=== PATIENT | female | born 1980 | race Caucasian/White ===

== ENCOUNTER 2018-07-13 12:56 | Outpatient (CLI) | payer BC ==
--- NOTE | 2018-07-13 14:36 | ULT ---
ULTRASOUND PELVIC ULTRASOUND TRANSVAGINAL DOPPLER DUPLEX: 07/13/2018 HISTORY: Menorrhagia with regular cycles, in a 38-year-old female. TECHNIQUE: Transabdominal transducer used to evaluate intrapelvic contents using the urinary bladder as an acous tic window. Endovaginal transducer used to visualize intrapelvic contents in greater detail. Color fl ow Doppler and Pulsed Doppler spectral waveform analysis of ovaries. FINDINGS: Uterus: 9.5 x 4 x 5 cm. Endometrial stripe: 0.4 cm (4 mm). IUD in place. Right ovary: 3 x 3 x 2.5 cm. Left ovary: 3 x 2.5 x 2.5 cm. Uterine leiomyoma (fibroid): None. Blood flow in both ovaries: Demonstrated. Ovarian cyst (defined as 2 cm or greater): A 2.5 x 2 x 1.5 cm left ovarian cyst Free fluid in the cul-de-sac: None. IMPRESSION: 1. A 2.5 cm left ovarian cyst. 2. Intrauterine device. MERRITT Woods POS: ORACIO
== END 2018-07-13 12:57 | disposition home or self-care (01) ==
LOC: SCSULT 12:56
PROVIDERS: ATTEND Family Medicine
DX: N92.0 Excessive and frequent menstruation with regular cycle (principal); N83.202 Unspecified ovarian cyst, left side; Z97.5 Presence of (intrauterine) contraceptive device
CPT/HCPCS: 76856

== ENCOUNTER 2019-02-25 00:35 | Observation (INO) | payer BC ==
[2019-02-25] MEDS ORDERED: Acetaminophen 650 MG Suppository PR PRN (01:35)
[2019-02-25] MEDS ORDERED: Ondansetron ODT 4 MG TAB PO PRN (01:35)
[2019-02-25] MEDS ORDERED: Ondansetron PF 4 MG/2 ML Vial IVP PRN (01:35)
[2019-02-25] MEDS ORDERED: Acetaminophen 325 MG TAB PO PRN (01:35)
[2019-02-25] MEDS ORDERED: Morphine 2 MG/ML SYRINGE SLOW IVP PRN (02:13)
[2019-02-25 02:44] VITALS: BMI 26.3
--- NOTE | 2019-02-25 04:07 | HP ---
PRIMARY CARE DOCTOR: None reported. CODE STATUS: Full code. TIME OF EVALUATION: 1:30 a.m. CHIEF COMPLAINT: Abdominal pain. HISTORY OF PRESENT ILLNESS: This is a 38-year-old female patient with no significant past medical history except for premorbidly obese in her early 20s, she was about 280 pounds. She had significant weight loss and has come down to 170 over the course of the years. 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 Symptoms had been present over the past week and has been gradually getting worse to the point that today she was unable to move due to the abdominal pain. She presented to the outpatient ER. She got a CT abdomen that shows moderate ascites and possible end-stage cirrhosis and some left sided adnexal simple cyst that had been seen also in ultrasounds in July 2018. The patient has also complained of associated anorexia and some weight loss, but she was thinking that this had been related to several family problems that she had where she had been under stress and anxiety. The symptoms were severe. REVIEW OF SYSTEMS: CONSTITUTIONAL: The patient had no fever, chills. The patient has generalized weakness. The patient has anorexia and also weight loss. RESPIRATORY: No cough, sputum production, shortness of breath. CARDIOVASCULAR: No chest pain or palpitation. GASTROINTESTINAL: The patient has abdominal pain. No nausea, no vomiting, diarrhea. 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 GENITOURINARY: No burning on urination. EXTREMITIES: No leg swelling. All other systems were reviewed and negative except for the findings mentioned above. PAST MEDICAL HISTORY: Negative except for morbid obesity. FAMILY HISTORY: Negative. SOCIAL HISTORY: No alcohol, no drugs. No smoking history. PAST SURGICAL HISTORY: No significant or major surgeries. ALLERGIES: KEFLEX. REPORTED MEDICATIONS: 1. Lisinopril. 2. Wellbutrin. PHYSICAL EXAMINATION: VITAL SIGNS: On presentation, blood pressure 128/68 with heart rate of 90, temperature 99.5, respiratory rate of 16. GENERAL APPEARANCE: The patient is alert, oriented, in mild distress due to medical events. HEAD AND EYES: Normal conjunctiva. Moist oral mucosae. Anicteric. NECK: No JVD. RESPIRATORY: Bilateral air entry. No rales. No wheezes. Symmetric expansion. CARDIOVASCULAR: Normal rate. Regular rhythm. No murmurs. No gallop. No edema. ABDOMEN: Soft, normal bowel sounds. Pain improved after pain medication. MUSCULOSKELETAL: Baseline range of motion and strength. SKIN: Warm, intact. No pallor. No rash. No redness. Capillary refill seems to be intact. NEUROLOGIC: No evidence of any new focal weakness. Cranial nerves seems to be intact. PSYCHIATRIC: The patient was crying during my examination. She is concerned about current presentation of symptoms. CAT scan was done prior to transfer and it was reported having moderate ascites . Consider evaluation for hepatitis. Questionable proximal small-bowel mucosal thickening may represent enteritis, minimal hepatic encephalopathy may represent early cirrhosis. Multiple small simple ovarian cysts are likely physiologic. This may be better evaluated with ultrasound, if clinically indicated. LABORATORY DATA: Reviewed. The patient has sodium 139, potassium 3.6, chloride 102, glucose 100, creatinine 1.0, BUN 13, hemoglobin 17, anion gap 19. LFTs were negative. White count was 19. UA was negative. VBG showed pH 7.34. ASSESSMENT AND PLAN: The patient will be placed in the hospital with following medical problems: 1. Ascites, of unclear etiology. The patient will be placed in the hospital. We will do tap. The patient will need a tap for diagnosis. Most likely etiology would be this is secondary to liver cirrhosis. Hepatitis panels will be ordered, will be secondary to fatty liver disease due to morbid obesity in early ages of life. The patient also has left adnexal multiple simple cysts in the ovary, that could be another etiology, although these cysts were seen also in July 2018 ultrasound. We will await for results and treat accordingly. 2. Possible early stage of cirrhosis, likely secondary to morbid obesity, unless proven otherwise with the hepatitis panel, GI has been consulted for further recommendations. 3. Severe abdominal pain needing opioid medication for optimal control, continue to treat patient was pain free at the time of my examination. 4. Deep venous thrombosis prophylaxis. 5. Leukocytosis. No clear etiology at this point. Possibility for spontaneous bacterial peritonitis is still there, the patient will have tap for diagnosis and treatment. We will follow results and treat accordingly. We will not start antibiotics now. This patient is stable and would like to have a good sample of ascitic fluid for further diagnosis. Job ID: [id number]
[2019-02-25 05:43] LABS: #Eosinphils 0.1 thou/uL (0.0-0.7); #Lymphocytes 1.8 thou/uL (1.20-3.40); #Neutrophils 8.2 thou/uL (1.40-6.50); %Basophils 0.3 % (0.0-1.0); %Eosinophils 0.7 % (0.0-10.0); %Lymphocytes 16.4 % (21.0-51.0); %Monocytes 9.2 % (0.0-10.0); %Neutrophils 73.5 % (42.0-75.0); Hemoglobin 11.9 g/dL (12.0-16.0); Mean Corpuscular HGB CONC 32.3 g/dL (32.0-36.0); Mean Corpuscular Hemoglobin 31.3 pg (27.0-31.0); Mean Corpuscular Volume 96.9 fL (78.0-98.0); Mean Platelet Volume 7.1 fL (7.4-10.4); Platelet Count 347 thou/uL (130-400); White Blood Cell (WBC) Count 11.1 thou/uL (4.8-10.8)
[2019-02-25 06:00] LABS: Anion Gap 10 mmol/L (10-20); BUN (Urea Nitrogen) 11 mg/dL (7.0-18.7); Calc. Creatinine Clearance 89 mL/min (70-130); Calcium 8.6 mg/dL (7.8-10.44); Carbon Dioxide 25 mmol/L (22-29); Chloride 104 mmol/L (98-107); Estimated GFR-MDRD 61; Glucose 97 mg/dL (70-105); Potassium 3.7 mmol/L (3.5-5.1); Sodium 135 mmol/L (136-145)
--- NOTE | 2019-02-25 11:50 | CON ---
DATE OF CONSULTATION: 02/25/2019 REASON FOR CONSULTATION: Abdominal pain, abnormal CAT scan. HISTORY OF PRESENT ILLNESS: Ms. Soriano is a 38-year-old female, who yesterday went to [facility] for abdominal pain. She notes it started acutely on Monday, it was fairly uncomfortable in her upper to mid abdomen. She has been at the pool with her kids and thought maybe she had a stomach bug and stomach cramping pain almost like she was going to have diarrhea, but never did. On Monday, that pain was worse, it was to the point where it would hurt her to get up and move around or even just to roll over in bed, and therefore, she came to the emergency room. She had no fever or chills. She had no diarrhea, nausea, or vomiting. She notes that she in the past couple of weeks has had some vague lower abdominal discomfort and thought that was maybe related to premenstrual cramping. She had gone to her PCP in the past couple of weeks and that her well-woman exam, everything was normal there, and her PCP thought maybe she just had some constipation issues and she was started on more fluids and liquids. Prior to this, she has never had anything like this. In the emergency room, she had some ascites, proximal small-bowel mucosal thickening and a minimally nodular contour to the liver per the radiologist. There was no mention of adenopathy, and there distinctly noted no evidence of appendicitis or gynecologic abnormalities, except for a simple ovarian cyst. The patient has had no fever or chills, rashes, myalgias, or arthralgias. Her weight has been stable around 160, 170, although she was around 300 pounds at the of her last child in early 2016. She states that stressful situations, going through divorce, and change of job situation, she just started eating less. PAST MEDICAL HISTORY: Obesity in the past. No history of bariatric surgery. She had some hypertension for which she was started on lisinopril about 6 months ago. She has had pseudotumor cerebri, which improved with weight loss. She also stays off estrogen containing hormones for that. PAST SURGICAL HISTORY: Includes an IUD and 2 wisdom teeth surgery. FAMILY HISTORY: Negative for liver disease, inflammatory bowel disease, colon cancer. SOCIAL HISTORY: She drinks alcohol maybe 2 glasses of wine a week. Has never been a heavy drinker. She did binge drink when she was in college. No history of drugs. No history of smoking. ALLERGIES: KEFLEX. MEDICATIONS: Wellbutrin, lisinopril. REVIEW OF SYSTEMS: CONSTITUTIONAL: No recent weight loss. No headaches. No vision changes. No fever or chills. She has some loss of appetite, generalized weakness and fatigue with not eating from the last day. RESPIRATORY: Negative for cough, shortness of breath, or dyspnea on exertion. CARDIOVASCULAR: Negative for chest pain or palpitations. GI: Negative for dysphagia, odynophagia, melena, hematochezia, hematemesis, nausea, vomiting, or constipation. : Negative for dysuria, frequency, or urgency. Last menstrual cycle was about 2 weeks ago. PHYSICAL EXAMINATION: VITAL SIGNS: Temperature is 98.8. She has been afebrile since admission. Pulse is 68, blood pressure to 110/75. GENERAL: She looks well. She has 2 friends at the bedside. She is in no distress. HEENT: Oropharynx is slightly dry. NECK: Supple without adenopathy. LUNGS: Clear. HEART: Regular rate and rhythm. ABDOMEN: Soft. There is mild tenderness, but no rebound, no guarding. Bowel sounds are quiescent. There is no shifting dullness or fluid wave. There are no palpable masses. No umbilical lesions. There is no evidence of inguinal nodes or adenopathy. EXTREMITIES: Reveal no clubbing, cyanosis, or edema. LABORATORY DATA: White count 7.8 on 01/25, it is 11.1 today, hemoglobin is 11.9, platelet count is 374. Sodium 135, potassium 3.7, chloride 104, bicarb 25, anion gap 10, BUN and creatinine are 11 and 1.02, glucose 97. She had normal comprehensive metabolic profile and normal TSH on 01/25/2019. Albumin was 3.8 and total protein was 6 with AST and ALT 11 and 9 at that time. In the emergency room yesterday, at the outside facility, she had a white count of 19,000 with 16% granulocytes, platelets of 453. Urinalysis was normal. Amylase was 40. GGT was 10, total protein was 7.2, albumin was 3.9. AST and ALT were 21 and 12. Alkaline phosphatase was 77. Electrolytes were all normal. Urinalysis was normal. Venous blood gas was normal. IMAGING STUDIES: CT as per HPI and reports. ASSESSMENT: Abdominal pain, fairly acute with significant leukocytosis and thrombocytosis, likely reactive. On admission, she had a little bit of scant ascites, some edematous small bowel and questionable nodular liver. Her labs are not consistent with end-stage liver disease. She has no peripheral edema on exam. I do not think that the ascites is from cirrhosis. There is not much comment on the report about her vascularity. Some concerns would be that this was an enteritis with development of the ascites with it, some type of vascular access in the abdomen including mesenteric vein or portal vein thrombosis would be something to consider, but the nodular liver is concerning, but the labs show no signs of cirrhosis. She has minimal alcohol use. Her risk factor would be that she was very heavy at one point in time and lost a lot of weight. She could have some fatty liver, but again I would not think that would cause the type of pain she identified. There does not appear to be at least on physical exam any tappable ascites. PLAN: We will review her CAT scans. We will start her on a liquid diet. We will review the actual pictures with Radiology today and make further recommendations at that time. Job ID: [id number]
[2019-02-25 12:05] LABS: ALT (SGPT) Less than 7 U/L (8-55); AST (SGOT) 9 U/L (5-34); Albumin 3.3 g/dL (3.5-5.0); Alkaline Phosphatase 70 U/L (40-150); Bilirubin, Direct 0.3 mg/dL (0.1-0.3); Bilirubin, Total 0.5 mg/dL (0.2-1.2); Protein, Total 5.8 g/dL (6.0-8.3)
[2019-02-25 12:16] LABS: HBCM Index 0.23 S/CO (0-0.79); HBSAg Index 0.26 S/CO (0-0.99); Hep A IgM AB Non-Reactive (NonReactive); Hep B Surf Ag Non-Reactive S/CO (NonReactive); Hep C IgG Ab Non-Reactive (NonReactive); Hep C Index 0.07 S/CO (0-0.79); Hepatitis B Core IgM Abs Non-Reactive (NonReactive)
[2019-02-25] MEDS: Dextrose 5 % And 0.9 % NaCl 1,000 ML IV SCH (12:41)
--- NOTE | 2019-02-25 14:30 | PDOC.PN ---
- Subjective Encounter Start Date: 02/25/19 Encounter Start Time: 09:45 Subjective: pt up in bed complains of abdomen pain - Objective Resuscitation Status - Order Detail: 02/25/19 01:35 Resuscitation Status Routine Resuscitation Status: FULL: Full Resuscitation Vital Signs & Weight: Vital Signs (12 hours) Temp Pulse Resp BP BP Pulse Ox 02/25/19 10:41 98.7 F 77 18 109/73 99 02/25/19 07:26 98.5 F 68 18 95/59 L 94 L 02/25/19 04:00 97.9 F 76 20 96/61 99 Weight Weight 163 lb Result Diagrams: 02/25/19 05:01 02/25/19 05:01 Phys Exam - Physical Examination Respiratory: no wheezing, no rales, no rhonchi, wheezing present, clear to auscultation bilateral Gastrointestinal: soft, positive bowel sounds mild tenderness all over Dx/Plan (1) Abdominal pain Code(s): R10.9 - UNSPECIFIED ABDOMINAL PAIN Status: Acute (2) Cirrhosis Code(s): K74.60 - UNSPECIFIED CIRRHOSIS OF LIVER Status: Acute - Plan ct abd/pel indicated ascites, gi consulted, will check -: hepatitis panel. may need paracentesis. * . Review of Systems - Review of Systems Respiratory: negative: Cough, Dry, Shortness of Breath, Hemoptysis, SOB with Excertion, Pleuritic Pain, Sputum, Wheezing Cardiovascular: negative: chest pain, palpitations, orthopnea, paroxysmal nocturnal dyspnea, edema, light headedness, other Gastrointestinal: Abdominal Pain - Medications/Allergies Allergies/Adverse Reactions: Allergies Allergy/AdvReac Type Severity Reaction Status Date / Time cephalexin [From Keflex] Allergy Verified 02/25/19 03:21 Medications: Current Medications Acetaminophen (Tylenol) 650 mg PO Q4H PRN PRN Reason: Headache/Fever/Mild Pain (1-3) Acetaminophen (Tylenol) 650 mg TN Q4H PRN PRN Reason: Headache/Fever/Mild Pain (1-3) Dextrose/Sodium Chloride (D5 0.9% Ns) 1,000 mls @ 75 mls/hr IV .[id number] LIBERTAD Last Admin: 02/25/19 12:41 Dose: 1,000 mls Morphine Sulfate (Morphine) 2 mg SLOW IVP Q4H PRN PRN Reason: Severe Pain (7-10) Ondansetron HCl (Zofran Odt) 4 mg PO Q6H PRN PRN Reason: Nausea/Vomiting Ondansetron HCl (Zofran) 4 mg IVP Q6H PRN PRN Reason: Nausea/Vomiting
--- NOTE | 2019-02-25 15:19 | CON ---
DATE OF CONSULTATION: 02/25/2019 ADDENDUM: Ms. Soriano is feeling a little bit better. She did tolerate liquids. She is still sore when she gets up and walks around. I was able to take her CAT scan images from the outside facility and reviewed them with our radiologist here, they do not see any overt cirrhosis. The liver edge does appear smooth. There is some scattered ascites in the pelvis and abdomen of unclear etiology. There is no adenopathy. There are no abnormalities in the genitourinary system. The IUD is in place. Does not appear to be inflammation there, and there are some loops of small bowel that were somewhat thickened consistent with enteritis, but it is not in one focal area. There is no associated fat stranding or mesenteric adenopathy. ASSESSMENT: At this time, I think she may be had some transient ischemia, which would be atypical in the small bowel. She does not use drugs or vasoconstrictive medications. More likely, this was either a viral or angioedema related to her ETTA inhibitor. At this point, I am going to hold off on her ETTA inhibitor and advance her diet slowly. Recheck some labs tomorrow. If she worsens in anyway, we can consider Surgical consultation. Job ID: [id number]
[2019-02-26] MEDS: Dextrose 5 % And 0.9 % NaCl 1,000 ML IV SCH ×2 (00:55→13:54)
[2019-02-26 06:15] LABS: #Basophils 0.1 thou/uL (0.0-0.2); #Eosinphils 0.1 thou/uL (0.0-0.7); #Lymphocytes 1.8 thou/uL (1.20-3.40); #Monocytes 0.7 thou/uL (0.11-0.59); #Neutrophils 5.5 thou/uL (1.40-6.50); %Basophils 0.9 % (0.0-1.0); %Eosinophils 1.4 % (0.0-10.0); %Lymphocytes 21.7 % (21.0-51.0); %Monocytes 8.7 % (0.0-10.0); %Neutrophils 67.3 % (42.0-75.0); Hemoglobin 10.3 g/dL (12.0-16.0); Mean Corpuscular HGB CONC 32.4 g/dL (32.0-36.0); Mean Corpuscular Hemoglobin 31.6 pg (27.0-31.0); Mean Corpuscular Volume 97.5 fL (78.0-98.0); Mean Platelet Volume 7.4 fL (7.4-10.4); Platelet Count 309 thou/uL (130-400); RBC Distribution Width 10.9 % (11.5-14.5); Red Blood Cell (RBC) Count 3.26 mill/uL (4.20-5.40); White Blood Cell (WBC) Count 8.1 thou/uL (4.8-10.8)
[2019-02-26 06:50] LABS: ALT (SGPT) Less than 7 U/L (8-55); AST (SGOT) 7 U/L (5-34); Alkaline Phosphatase 63 U/L (40-150); Anion Gap 9 mmol/L (10-20); BUN (Urea Nitrogen) 5 mg/dL (7.0-18.7); Bilirubin, Total 0.2 mg/dL (0.2-1.2); Calc. Creatinine Clearance 108 mL/min (70-130); Calcium 8.5 mg/dL (7.8-10.44); Carbon Dioxide 26 mmol/L (22-29); Chloride 108 mmol/L (98-107); Estimated GFR-MDRD 77; Globulin 2.2 g/dL (2.4-3.5); Glucose 95 mg/dL (70-105); Lipase 16 U/L (8-78); Potassium 4.1 mmol/L (3.5-5.1); Protein, Total 5.2 g/dL (6.0-8.3); Sodium 139 mmol/L (136-145)
[2019-02-26 12:32] VITALS: BP 127/82; TEMP 98.8
--- NOTE | 2019-02-27 04:35 | DIS ---
DATE OF ADMISSION: 02/25/2019 DATE OF DISCHARGE: 02/26/2019 DISCHARGE DIAGNOSES: As of the following; 1. Abdominal pain. 2. Possible enteritis. 3. Possible cirrhosis. HOSPITAL COURSE: The patient is a 38-year-old female who initially presented to the hospital with complaints of generalized abdominal pain. The patient had a history of severe morbid obesity; however, she had lost significant amount of pain. The patient did get a CT of abdomen and pelvis, which indicated some possible moderate ascites and possible cirrhosis was also mentioned. At this time, she was seen by GI who wanted to review the scans with the radiologist in regard to possible ascites. However, upon reviewing the scan, the decision was made that the liver edges does appear smooth and did not indicate any overt cirrhosis. There was some scattered ascites in the pelvis and the abdomen of unclear etiology. There was no adenopathy. She did have some loops of her bowel that seemed to be thickened is consistent with enteritis. However, there was no local focal area. It was not associated with any kind of stranding or mesenteric adenopathy. At this time, a recommendation from GI was to discontinue her ETTA inhibitor in the thoughts that possibly this could be a transient ischemia which is also very atypical in the small bowel. The patient the following day had 2 bowel movements. Her abdominal pain improved and she was able to tolerate her meal and was discharged. Her hepatitis panel was negative and her CMP was negative. I did do an ISAAC which is pending to be resulted. I did tell the patient to follow up with GI in 1 to 2 months and also to follow up with her primary care doctor. HOME MEDICATIONS: Her home medications will be as of the following; 1. Wellbutrin daily. 2. I have discontinued her lisinopril. PHYSICAL EXAMINATION: VITAL SIGNS: 98.8, 84, 18, 99% on room air, 127/82. GENERAL: She is awake, alert, and oriented x3. Does not appear in distress. CV: S1 and S2 present. No murmurs, rubs, or gallops. ABDOMEN: Soft and nontender. Bowel sounds are present x2. EXTREMITIES: No edema. Pedal pulses are present x2. Again, she will be discharged home. She will follow up with her primary care doctor and also with GI as outpatient. Job ID: [id number]
[2019-02-27] MEDS ORDERED: Bupropion 150 MG XL TAB PO SCH (09:00)
[2019-02-27 16:57] LABS: ANA Symphony (Qualitative) Negative (Negative); ANA Symphony (Quantitative) 0.2 Ratio (< 0.7 Negative); dsDNA IgG Antibody Less than 0.5 IU/mL (<10 Negative)
== END 2019-02-26 14:02 | disposition home or self-care (01) ==
LOC: T4-A 00:58
PROVIDERS: ADMIT Hospitalist; ATTEND Hospitalist
DX: R18.8 Other ascites (principal); I10 Essential (primary) hypertension; D72.829 Elevated white blood cell count, unspecified; Z79.899 Other long term (current) drug therapy; Z88.1 Allergy status to other antibiotic agents
CPT/HCPCS: 36415; 80048; 80053; 80074; 80076; 83690; 85025; 86038; 86225; 96360; 96361; G0378